=== PATIENT | female | born 1975 | race Caucasian/White ===

== ENCOUNTER 2018-02-21 14:55 | Emergency (ER) | payer OTHER ==
[~2018-02-21] VITALS: Ht 160 cm; Wt 61.2 kg
[2018-02-21] MEDS ORDERED: PROVENTIL HFA6.7 GM IH (19:21)
== END 2018-02-21 19:34 | disposition home or self-care (01) ==
LOC: ER 14:55
DX: J20.8 Acute bronchitis due to other specified organisms (principal)

== ENCOUNTER 2018-08-18 19:24 | Emergency (ER) | payer OTHER ==
[~2018-08-18] VITALS: Ht 160 cm; Wt 62.6 kg
[~2018-08-18 19:24] MED LIST: PROVENTIL HFA6.7 GM IH
[2018-08-18] MEDS ORDERED: SPRINTEC 28 DA1 EACH (19:36)
== END 2018-08-18 22:52 | disposition home or self-care (01) ==
LOC: ER 19:24
DX: R53.1 Weakness (principal); N93.8 Other specified abnormal uterine and vaginal bleeding; D64.9 Anemia, unspecified

== ENCOUNTER → 2019-08-27 | Emergency (ER) | payer OTHER ==
[~2019-08-27] VITALS: Ht 160 cm; Wt 63.0 kg
[~2019-08-27] MED LIST changes: +SPRINTEC 28 DA1 EACH; +ZITHROMAX500 MG PO
== END | disposition home or self-care (01) ==
LOC: ER 21:04
DX: B34.9 Viral infection, unspecified (principal); B96.0 Mycoplasma pneumoniae [M. pneumoniae] as the cause of diseases classified elsewhere; Z03.818 Encounter for observation for suspected exposure to other biological agents ruled out

== ENCOUNTER 2021-01-03 14:40 | Outpatient (CLI) | payer OTHER | END 2021-01-03 14:57 | disposition home or self-care (01) | LOC: MAMO-SONO 14:40 | PROVIDERS: ATTEND Obstetrics & Gynecology | DX: N64.59 Other signs and symptoms in breast (principal); Z12.31 Encounter for screening mammogram for malignant neoplasm of breast; N64.4 Mastodynia ==

== ENCOUNTER 2022-04-25 13:44 | Outpatient (CLI) | payer OTHER | END 2022-04-25 13:51 | disposition home or self-care (01) | LOC: SONOGRAMA 13:44 | DX: Z12.31 Encounter for screening mammogram for malignant neoplasm of breast (principal) ==